=== PATIENT | female | born 1980 | race Caucasian/White ===

== ENCOUNTER 2017-06-09 08:06 | Emergency (ER) | payer BC, SELFPAY ==
[2017-06-09 08:09] VITALS: BP 150/93; PULSE 109; RESP 20; TEMP 36.8; O2SAT 98; BMI 23.5
[2017-06-09 08:28] LABS: Microscopic, Urine URINE MICROSCOPIC (MICROSCOPIC)
[2017-06-09 08:32] LABS: Appearance,Urine CLEAR (Clear); Bilirubin,Urine Negative (Negative); Blood, Urine Negative (Negative); Color,Urine YELLOW (Yellow); Glucose,Urine (UA) Negative (Negative); Ketones,Urine Negative (Negative); Leukocyte Esterase,Urine Negative (Negative); Nitrate,Urine Negative (Negative); Protein,Urine Negative (Negative); Specific Gravity, Urine >= 1.030 (1.005-1.030); Urobilinogen,Urine 0.2 EU/dl (0.2)
[2017-06-09 08:34] LABS: Urine Pregnancy, HCG Qual. Negative (Negative)
[2017-06-09 08:41] LABS: Bacteria,Urine 2+ /lpf; Mucus,Urine 1+ /lpf
--- NOTE | 2017-06-09 08:42 | CT_ITS ---
CT abdomen pelvis wo con CLINICAL INDICATION: ITS.REASON: RLQ PAIN, ORDERING PHYSICIAN: Cristofer Golden MD PATIENT AGE: 37 years COMPARISON: None TECHNIQUE: Axial images obtained with sagittal and coronal reformats. PROCEDURE: Oral Contrast: None IV Contrast: None . FINDINGS: Lung bases are clear. The liver, gallbladder, spleen, and adrenal glands are unremarkable. Pancreatic body and tail are somewhat prominent. Some this density however may be due to unopacified vessels and bowel. No obstructing renal or ureteral calculi. There is a 5.5 x 3.47 m cyst along the upper pole the left kidney. There is some minimal increased density along the inferior margin of this cyst and there are punctate bilateral renal calculi. There is a tiny umbilical hernia containing fat. The appendix has an unremarkable appearance. The uterus is somewhat bulky measuring 10 x 4.5 x 6.7 cm. The uterus is anteverted. Small amount fluid is present in the pelvis. No focal inflammatory change apparent. There is mild amount retained colonic feces. IMPRESSION: 1. No acute finding. No evidence of appendicitis or obstructing ureteral calculus. 2. Nonobstructing punctate renal calculi with a 5.57 m left renal cyst. 3. Constipation. 4. Bulky uterus which is anteverted
[2017-06-09 08:44] LABS: Basophils # 0.1 K/mm3 (0-0.2); Basophils % 0.9 % (0.1-2.0); Eosinophils # 0.3 K/mm3 (0.0-0.4); Eosinophils % 3.9 % (0.1-12.0); Hematocrit 41.2 % (37.0-47.0); Hemoglobin 13.8 g/dL (12.2-16.2); Lymphocytes # 1.8 K/mm3 (0.7-4.5); Lymphocytes % 26.1 K/mm3 (10-50); Mean Corpuscular HGB Conc 33.5 g/dL (31.8-35.4); Mean Corpuscular Hemoglobin 30.1 pg (27.0-31.2); Mean Corpuscular Volume 89.8 fl (81-99); Mean Platelet Volume 7.6 fl (7.4-10.4); Monocytes # 0.4 K/mm3 (0.1-1.0); Monocytes % 6.3 % (1.7-9.3); Neutrophils # 4.4 K/mm3 (1.8-7.8); Neutrophils % 62.8 % (37.0-80.0); Platelet Count 257 K/mm3 (142-424); Red Blood Count 4.59 M/mm3 (4.20-5.40); Red Cell Distribution Width 12.6 % (11.5-17.5)
--- NOTE | 2017-06-09 08:45 | [facility].EDABDPAI ---
ED Disposition Clinical Impression: RLQ abdominal pain Disposition: Home, Self-Care Condition on Discharge: Good Instructions: DI for Abdominal Pain-Adult Additional Instructions: Please take [id number] Motrin as needed for pain, schedule follow-up appointment with local fashion styling intern in the next 3-5 days. Referrals: Hilary Wynn [Primary Care Provider] - Hector Haywood MD [Staff Physician] - Ricardo Correia MD [Staff Physician] - Time of Disposition: 10:44 - Critical Care Critical Care Time: No Attestation: On 06/09/17, the high probability of a clinically significant, sudden or life threatening deterioration of the following system(s) required my full and direct attention, intervention and personal management. The time I documented below is in addition to time spent performing reported procedures but includes the following listed in this critical care notation. Medical Decision Making - Medical Records Medical records reviewed: Yes: I reviewed the patient's medical records. Vital Signs: 06/09/17 08:09 06/09/17 11:01 Temperature 98.3 F 98.3 F Temperature Source Oral Oral Pulse Rate 91 H Pulse Rate [Right Brachial] 109 H Respiratory Rate 20 18 Blood Pressure 155/92 Blood Pressure [Right Arm] 150/93 Blood Pressure Mean [Right Arm] 112 Blood Pressure Source [Right Arm] Automatic Cuff Blood Pressure Position Sitting Blood Pressure Position [Right Arm] Sitting 02 Sat by Pulse Oximetry 98 Oxygen Delivery Method Room Air Room Air - Lab Data Lab results reviewed: Yes: I reviewed the patient's lab results. Lab Results 06/09/17 08:25: Urine Color Yellow, Urine Appearance Clear, Urine pH 6.0, Ur Specific [place] >= 1.030, Urine Protein Negative, Urine Glucose (UA) Negative, Urine Ketones Negative, Urine Blood Negative, Urine Nitrate Negative, Urine Bilirubin Negative, Urine Urobilinogen 0.2, Ur Leukocyte Esterase Negative, Urine WBC 5-10, Ur Squamous Epith Cells 10-20, Urine Bacteria 2+, Urine Mucus 1+ 06/09/17 08:25: Urine HCG, Qual Negative 06/09/17 08:35: WBC 7.0, RBC 4.59, Hgb 13.8, Hct 41.2, MCV 89.8, MCH 30.1, MCHC 33.5, RDW 12.6, Plt Count 257, MPV 7.6, Neut % (Auto) 62.8, Lymph % (Auto) 26.1, [place] % (Auto) 6.3, Eos % (Auto) 3.9, Baso % (Auto) 0.9, Neut # (Auto) 4.4, Lymph # (Auto) 1.8, [place] # (Auto) 0.4, Eos # (Auto) 0.3, Baso # (Auto) 0.1 06/09/17 08:35: Sodium 143, Potassium 3.8, Chloride 107, Carbon Dioxide 28, Anion Gap 11.8, BUN 11, Creatinine 0.73, Estimated Creat Clear 112, Estimated GFR 89, Est GFR ( Amer) 108, Glucose 113 H, Calcium 8.9, Total Bilirubin 0.3, AST 11 L, ALT 29, Alkaline Phosphatase 65, Total Protein 7.3, Albumin 3.8, Globulin 3.5 H, Albumin/Globulin Ratio 1.1, Amylase 68 06/09/17 08:35: Lipase 121 Result diagrams: 06/09/17 08:35 06/09/17 08:35 Orders (Tests/Meds): ORDERS Category Date Time Status Urine Culture Stat Micro 06/09/17 08:25 Received - CT Data CT Scan: Abdomen, Pelvis Time Received: 10:[address] Reviewed: Yes: I have reviewed the patient's CT results, I have viewed the radiologist's interpretation Findings Narrative: COMPARISON: None TECHNIQUE: Axial images obtained with sagittal and coronal reformats. PROCEDURE: Oral Contrast: None IV Contrast: None . FINDINGS: Lung bases are clear. The liver, gallbladder, spleen, and adrenal glands are unremarkable. Pancreatic body and tail are somewhat prominent. Some this density however may be due to unopacified vessels and bowel. No obstructing renal or ureteral calculi. There is a 5.5 x 3.47 m cyst along the upper pole the left kidney. There is some minimal increased density along the inferior margin of this cyst and there are punctate bilateral renal calculi. There is a tiny umbilical hernia containing fat. The appendix has an unremarkable appearance. The uterus is somewhat bulky measuring 10 x 4.5 x 6.7 cm. The uterus is anteverted. Small amount fluid is present in th
[2017-06-09 08:54] LABS: Lipase 121 u/L (73-393)
[2017-06-09 08:57] LABS: Alanine Aminotransferase 29 U/L (12-78); Albumin Level 3.8 gm/dL (3.4-5.0); Albumin/Globulin Ratio 1.1 (1.1-1.8); Alkaline Phosphatase 65 U/L (46-116); Amylase 68 U/L (25-125); Anion Gap 11.8 mEq/L (5-15); Aspartate Amino Transferase 11 U/L (15-37); Bilirubin,Total 0.3 mg/dL (0.2-1.0); Blood Urea Nitrogen 11 mg/dL (7-18); Calcium 8.9 mg/dL (8.5-10.1); Carbon Dioxide 28 mmol/L (21.0-32.0); Chloride 107 mmol/L (98-107); Creatinine Clearance Estimated 112 mL/min (0-300); Creatinine,Serum 0.73 mg/dL (0.55-1.02); Estimated Glomerular Filt Rate 89 ml/min (>60); GFR (African American) 108 ML/MIN (>60); Globulin 3.5 gm/dl (1.3-3.2); Glucose 113 mg/dL (74-106); Potassium 3.8 mmoL/L (3.5-5.1); Sodium 143 mmol/L (136-145); Total Protein,Serum 7.3 gm/dL (6.4-8.2)
--- NOTE | 2017-06-09 09:39 | US_ITS ---
US transvaginal HISTORY: Right lower quadrant pain, enlarged uterus on CT scan ITS.REASON: RLQ pain ORDERING PHYSICIAN: Kosta Pierre MD PATIENT AGE: 37 years COMPARISON: CT scan of the same day FINDINGS: The uterus measures 10 x 4.6 x 5.3 cm. The endometrium is thickened at 13 mm. Nabothian cyst is present. No uterine mass or endometrial fluid collection. Left ovary is 3.7 x 2 cm containing small follicles. Blood flow is present. Right ovary is 4 x 2.2 cm also containing small follicles with blood flow noted. No cul-de-sac fluid. IMPRESSION: Bulky uterus with thickened endometrium
[2017-06-09 11:01] VITALS: BP 155/92; PULSE 91; RESP 18; TEMP 36.8; O2SAT 96
== END 2017-06-09 11:02 | disposition home or self-care (01) ==
PROVIDERS: Emergency Provider Emergency Medicine; PCP Nurse Practitioner Family
DX: R10.31 Right lower quadrant pain (principal); N85.2 Hypertrophy of uterus; K59.00 Constipation, unspecified
CPT/HCPCS: 74176; 76830; 80053; 81001; 81025; 82150; 83690; 85025; 87086; 87088; 87186; 99281